=== PATIENT | male | born 1985 | race Caucasian/White ===

== ENCOUNTER 2019-03-19 11:45 | Inpatient (IN) | payer OTHER ==
[2019-03-19 13:46] VITALS: BMI 31.0
--- NOTE | 2019-03-19 16:32 | HP ---
Screened but not Admitted - Documentation of Visit Screened but not Admitted: Yes Left Prior to Completion of Assessment: No Insurance Authorization Denied: No Patient Does Not Meet Criteria for Admission: No Level of Care Recommended at this Time: ER Evaluation/Care Alternative Treatment/Fdc Info Provided: No Additional Information/Explanation: Pt was in [facility] ER yesterday for alcohol detox, given librium and sent here for further management. 33 yo with alcohol use disorder now in alcohol withdrawal: with anxiety, tremulousness, high BP. Pt states he had alcohol withdrawal seizures and presumed DT's about 3 weeks ago. He remembered having hallucinations and then thinks he was sedated for 4 days. [facility] called, spoke to Dr Kincaid and the information above was given.
--- NOTE | 2019-03-19 17:06 | HP ---
CIWA Score Nausea/Vomitin-Mild Nausea/No Vomiting Muscle Tremors: 4-Moderate,w/Arms Extend Anxiety: 2 Agitation: 0-Normal Activity Paroxysmal Sweats: No Perspiration Orientation: 0-Oriented Tacttile Disturbances: 0-None Auditory Disturbances: 0-None Visual Disturbances: 2-Mild Sensitivity Headache: 4-Moderately Severe CIWA-Ar Total Score: 13 - Admission Criteria OASAS Guidelines: Admission for Medically Managed Detox: Requires at least one of the followin. CIWA greater than 12 2. Seizures within the past 24 hours 3. Delirium tremens within the past 24 hours 4. Hallucinations within the past 24 hours 5. Acute intervention needed for co occurring medical disorder 6. Acute intervention needed for co occurring psychiatric disorder 7. Severe withdrawal that cannot be handled at a lower level of care (continued vomiting, continued diarrhea, abnormal vital signs) requiring intravenous medication and/or fluids 8. Admission ROS [facility] - [facility] Chief Complaint: alcohol detox Allergies/Adverse Reactions: Allergies Allergy/AdvReac Type Severity Reaction Status Date / Time codeine Allergy Verified 03/19/19 13:40 History of Present Illness: 33 y/o M with PMH HTN, anxiety, depression, sz, DT's, who presents for alcohol detox. Per pt, his last drink was 1.5 days ago. He had 1L vodka. Drinks this amount daily. Has drank increasing amounts since he was 13 yrs old. Longest duration sobriety 3 weeks - states it occurred when he had broken up with his ex - girlfriend and she moved out of his house. Was recently placed on ativan 2mg tabs BID for 1.5 weeks duration by his Doctor for a recent outpt detox. Had an alcohol withdrawal sz 3-4 weeks ago, and was subsequently placed in a medically induced coma, intubated and in the [facility] ICU. He has blacked out previously. Drinks because it makes him "feel good." Was at [facility] yesterday for detox but was only given few doses of Librium; took two doses this AM and came from there. 1st time at [facility] may want to do rehab after, he isn't sure yet. "it scares him to think of being in a place for too long" PMH: as above PsxH: denies meds: vit B, ?lactulose allergies: codeine- itching, emesis FH: aunt- DM, grandparents - cancer, colon CA SH: lives in a house w friends. 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 smokes 1 ppd since 14 y/o . alcohol use as above. denies other drugs Exam Limitations: No Limitations - Ebola screening Have you traveled outside of the country in the last 21 days: No Have you had contact with anyone from an Ebola affected area: No Have you been sick,other than usual withdrawal symptoms: No Do you have a fever: No - Review of Systems Constitutional: Weakness EENT: reports: Blurred Vision Respiratory: reports: Cough Cardiac: reports: Palpitations GI: reports: Constipated : reports: No Symptoms Reported Musculoskeletal: reports: No Symptoms Reported Integumentary: reports: No Symptoms Reported Neuro: reports: Weakness Endocrine: reports: No Symptoms Reported Hematology: reports: No Symptoms Reported Psychiatric: reports: Orientated x3 Patient History - Patient Medical History Hx Hypertension: Yes Hx Depression: Yes Other Medical History: anxiety - Patient Surgical History Past Surgical History: No - PPD History Previous Implant?: No Implanted On Prior R Admission?: No PPD to be Administered?: Yes - Reproductive History Patient is a Female of Child Bearing Age (11 -55 yrs old): No - Smoking Cessation Smoking history: Current every day smoker Have you smoked in the past 12 months: Yes Aproximately how many cigarettes per day: 20 Hx Chewing Tobacco Use: No Initiated information on smoking cessation: Yes 'Breaking Loose' booklet given: 03/19/19 - Substances abused Alcohol Substance route: Oral Frequency: Daily Amount used: 1 LITER VODKA Age of first use: 14 Date of last use: 03/18/19 Family Disease History - Family Disease History Family Disease History: CA: Grandparent Other Family History: aunt - DM, thyroidectomy. grandparents- cancer, metastic CA Admission Physical Exam BHS - Vital Signs Vital Signs: Vital Signs - 24 hr 03/19/19 03/19/19 13:42 14:19 Temperature 99.1 F 99.1 F Pulse Rate 84 84 Respiratory 18 18 Rate Blood Pressure 160/109 H 160/109 H - Physical General Appearance: Yes: Within Normal Limits HEENTM: Yes: Within Normal Limits, Hearing grossly Normal, Normal Voice Respiratory: Yes: Lungs Clear, Other (+increased expiratory phase) Neck: Yes: Within Normal Limits, Supple Breast: Yes: Breast Exam Deferred Cardiology: Yes: Regular Rhythm, Regular Rate, S1, S2 Abdominal: Yes: Normal Bowel Sounds, Soft Genitourinary: Yes: Within Normal Limits Back: Yes: Normal Inspection Musculoskeletal: Yes: Within Normal Limits Extremities: Yes: Within Normal Limits Neurological: Yes: field technician II-XII NML intact Integumentary: Yes: Dry, Warm - Diagnostic (1) Seizures Current Visit: Yes Status: Chronic (2) Delirium tremens Current Visit: Yes Status: Chronic (3) Hypertension Current Visit: Yes Status: Chronic (4) Anxiety Current Visit: Yes Status: Chronic (5) Depression Current Visit: Yes Status: Chronic (6) Alcohol withdrawal syndrome without complication Current Visit: Yes Status: Acute (7) Nicotine use disorder Current Visit: Yes Status: Chronic Cleared for Admission [facility] - Detox or Rehab [facility] Level of Care: Medically Managed Detox Regimen/Protocol: Librium Breathalyzer - Breathalyzer Breathalyzer: 0 Urine Drug Screen - Test Device Lot number: [id number] Expiration date: 12/10/20 - Control Is test valid?: Yes - Results Urine drug screen results: BAR-Barbiturates, BZO-Benzodiazepines Inpatient Rehab Admission - Rehab Decision to Admit Inpatient rehab admission?: No
[2019-03-19] MEDS ORDERED: chlordiazePOXIDE HCL 25 MG CAPSULE PO PRN (17:25)
[2019-03-19] MEDS ORDERED: chlordiazePOXIDE HCL 25 MG CAPSULE PO ONE (17:25)
[2019-03-19] MEDS ORDERED: cloNIDine HCL 0.1 MG TABLET PO PRN (17:27)
[2019-03-19] MEDS ORDERED: MAGNESIUM HYDROX 2400MG/30ML ORAL SUSPENSION 30 ML CUP PO PRN (17:28)
[2019-03-19] MEDS ORDERED: MAG HYDROX/AL HYDROX/SIMETH 30 ML UNIT-DOSE CUP PO PRN (17:28)
[2019-03-19] MEDS ORDERED: NICOTINE POLACRILEX 2 MG GUM BUC PRN (17:28)
[2019-03-19] MEDS ORDERED: BISMUTH SUBSALICYLATE 524 MG/30 ML UD PO PRN (17:28)
[2019-03-19] MEDS ORDERED: MENTHOL/PHENOL 1 EACH UD MM PRN (17:28)
[2019-03-19] MEDS ORDERED: IBUPROFEN 400 MG TABLET (FP) PO PRN (17:28)
[2019-03-19] MEDS ORDERED: ACETAMINOPHEN 325 MG TABLET (FP) PO PRN ×2 (17:28)
[2019-03-19] MEDS ORDERED: NICOTINE 7 MG/24 HOURS TOPICAL PATCH TD SCH (18:00)
[2019-03-19] MEDS: METHOCARBAMOL 500 MG TABLET PO PRN (18:26)
[2019-03-19] MEDS: chlordiazePOXIDE HCL 25 MG CAPSULE PO SCH ×2 (18:26→22:08)
[2019-03-19] MEDS: hydrOXYzine PAMOATE 25 MG CAPSULE (FP) PO PRN (18:27)
[2019-03-19] MEDS: NICOTINE 7 MG/24 HOURS TOPICAL PATCH TD SCH (19:02)
--- NOTE | 2019-03-19 19:51 | PN ---
Teaching Attending Note Name of Resident: Adelina Mart ATTENDING PHYSICIAN STATEMENT I saw and evaluated the patient. I reviewed the resident's note and discussed the case with the resident. I agree with the resident's findings and plan as documented. SUBJECTIVE: 33 yo with h/o HTN, anxiety and depression here for alcohol detox. Pt was in [facility] ER yesterday for alcohol detox, given librium and sent here for further management. Pt states he had alcohol withdrawal seizures and presumed DT's (He remembered having hallucinations and then thinks he was sedated for 4 days) about 3 weeks ago. OBJECTIVE: Vital Signs - 24 hr 03/19/19 03/19/19 03/19/19 13:42 14:19 18:18 Temperature 99.1 F 99.1 F 98.2 F Pulse Rate 84 84 67 Respiratory 18 18 16 Rate Blood Pressure 160/109 H 160/109 H 144/91 tremulousness, high BP alert and oriented ASSESSMENT AND PLAN: alcohol detox protocol clonidine prn for high BP consider ACEi or Ca channel jody for crop nutrition scientist management.
[2019-03-19] MEDS: MELATONIN 5 MG TABLETS PO PRN (22:09)
[2019-03-19] MEDS: THIAMINE HCL 100 MG TABLET (FP) PO SCH (22:09)
[2019-03-20] MEDS: chlordiazePOXIDE HCL 25 MG CAPSULE PO SCH ×4 (05:19→22:13)
[2019-03-20] MEDS: PRENATAL VITAMINS W/ FOLIC ACID TABLET (FP) PO SCH (10:16)
[2019-03-20] MEDS: hydrOXYzine PAMOATE 25 MG CAPSULE (FP) PO PRN ×2 (10:19→17:27)
[2019-03-20 10:37] LABS: HEMATOCRIT 39.6 % (35.4-49); HEMOGLOBIN 13.6 GM/dL (11.7-16.9); MCH 36.7 pg (25.7-33.7); MCHC 34.3 g/dl (32.0-35.9); MEAN PLT VOLUME 9.4 fl (7.5-11.1); PLATELET COUNT 104 K/MM3 (134-434); RDW 12.6 % (11.9-15.9); WHITE BLOOD COUNT 3.3 K/mm3 (4.0-10.0)
[2019-03-20 10:41] LABS: ALBUMIN 3.5 g/dl (3.4-5.0); BILIRUBIN,TOTAL 1.4 mg/dL (0.2-1); BLOOD UREA NITROGEN 9.2 mg/dL (7-18); CALCIUM 9.6 mg/dL (8.5-10.1); CREATININE 0.6 mg/dL (0.55-1.3); POTASSIUM 3.5 mmol/L (3.5-5.1); TOT PROT 6.4 g/dl (6.4-8.2)
[2019-03-20] MEDS: NICOTINE 7 MG/24 HOURS TOPICAL PATCH TD SCH (11:26)
--- NOTE | 2019-03-20 11:50 | CONSULT ---
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 This is patient's first admission to detox at [facility]. Patient admitted to for alcohol dependence. Substance Abuse History: - Smoking Cessation. Smoking history: Current every day smoker. Have you smoked in the past 12 months: Yes. Aproximately how many cigarettes per day: 20. Hx Chewing Tobacco Use: No Psychiatric History: Patient denies h/o psychiatric hospitlization and suicide attempt. He reports seeing a psychiatrist at the age of 27 while living in [place] and was prescribed buspar and an antidepressant. Mr. Andino denies additional psychiatric treatment. At present he reports stable mood and mild anxiety. Physical/Sexual Abuse/Trauma History: denies. Mental Status Exam - Mental Status Exam Alert and Oriented to: Time, Place, Person Cognitive Function: Good Patient Appearance: Well Groomed Mood: Euthymic Affect: Mood Congruent Patient Behavior: Cooperative Speech Pattern: Appropriate Voice Loudness: Moderately Soft/Quiet Thought Process: Goal Oriented Thought Disorder: Not Present Hallucinations: Denies Suicidal Ideation: Denies Homicidal Ideation: Denies Insight/Judgement: Poor Sleep: Fair Appetite: Fair Muscle strength/Tone: Normal Gait/Station: Normal Psychiatric Findings - Problem List ([place] 1, 2,3) (1) Alcohol-induced anxiety disorder Current Visit: Yes Status: Acute (2) Alcohol-induced mood disorder Current Visit: Yes Status: Acute - Initial Treatment Plan Initial Treatment Plan: Psychoeducation provided. Detoxification in progress. Patient informed of melatonin 5mg HS and vistaril 25mg q6h for anxiety. He reports taking both medications and states they were effective. Observation.
[2019-03-20] MEDS: METHOCARBAMOL 500 MG TABLET PO PRN (14:36)
--- NOTE | 2019-03-20 15:12 | PN ---
S CIWA - CIWA Score Nausea/Vomitin-No Nausea/No Vomiting Muscle Tremors: 3 Anxiety: 3 Agitation: 0-Normal Activity Paroxysmal Sweats: No Perspiration Orientation: 0-Oriented Tacttile Disturbances: 1-Very Mild Itch/Numbness Auditory Disturbances: 0-None Visual Disturbances: 2-Mild Sensitivity Headache: 3-Moderate CIWA-Ar Total Score: 12 BHS Progress Note (SOAP) Subjective: Tremors, Anxious, H/A. Objective: PATIENT A & O X 3, OBSERVED AMBULATING ON UNIT UNASSISTED. IN NO ACUTE DISTRESS. 03/20/19 15:09 Vital Signs Temperature 98.4 F 03/20/19 13:27 Pulse Rate 93 H 03/20/19 13:27 Respiratory Rate 18 03/20/19 13:27 Blood Pressure 136/90 03/20/19 13:27 O2 Sat by Pulse Oximetry (%) Laboratory Tests 03/20/19 03/20/19 03/20/19 07:00 07:00 07:00 WBC 3.3 L RBC 3.70 L Hgb 13.6 Hct 39.6 MCV 107.0 H MCH 36.7 H MCHC 34.3 RDW 12.6 Plt Count 104 L MPV 9.4 Sodium 140 Potassium 3.5 Chloride 104 Carbon Dioxide 32 Anion Gap 5 L BUN 9.2 Creatinine 0.6 Est GFR (CKD-EPI)AfAm 153.11 Est GFR (CKD-EPI)NonAf 132.10 Random Glucose 102 Calcium 9.6 Total Bilirubin 1.4 H AST 60 H ALT 74 H Alkaline Phosphatase 69 Total Protein 6.4 Albumin 3.5 RPR Titer Nonreactive LABS NOTED. RESULTS OF DETOX ADMISSION QFT / TB TEST PENDING. 03/20/19 15:10 Assessment: 03/20/19 15:10 WITHDRAWAL SYMPTOMS. LEUKOPENIA. THROMBOCYTOPENIA. ELEVATED AST LEVEL. ELEVATED ALT LEVEL. HYPERBILIRUBINEMIA. 03/20/19 15:12 Plan: CONTINUE DETOX. INCREASE DAILY PO WATER INTAKE.
[2019-03-20] MEDS: MELATONIN 5 MG TABLETS PO PRN (22:13)
[2019-03-20] MEDS: THIAMINE HCL 100 MG TABLET (FP) PO SCH (22:13)
[2019-03-21] MEDS: chlordiazePOXIDE HCL 25 MG CAPSULE PO SCH ×4 (06:16→22:23)
--- NOTE | 2019-03-21 09:08 | PN ---
S CIWA - CIWA Score Nausea/Vomitin-No Nausea/No Vomiting Muscle Tremors: 1-None Visible, but [place] Anxiety: 0-No Anxiety, at Ease Agitation: 1-Slight > Activity Paroxysmal Sweats: No Perspiration Orientation: 0-Oriented Tacttile Disturbances: 0-None Auditory Disturbances: 0-None Visual Disturbances: 0-None Headache: 1-Very Mild CIWA-Ar Total Score: 3 BHS Progress Note (SOAP) Subjective: Patient seen while in bed without distress. No relevant complaints. Objective: 03/21/19 09:06 Vitals: BP: 109/56 P: 59/min R: 17/min T: 97.7F Laboratory 03/20/19 03/20/19 03/20/19 07:00 07:00 07:00 WBC 3.3 K/mm3 L K/mm3 (4.0-10.0) RBC 3.70 M/mm3 L M/mm3 (4.00-5.60) Hgb 13.6 GM/dL GM/dL (11.7-16.9) Hct 39.6 % % (35.4-49) MCV 107.0 fl H fl (80-96) MCH 36.7 pg H pg (25.7-33.7) MCHC 34.3 g/dl g/dl (32.0-35.9) RDW 12.6 % % (11.9-15.9) Plt Count 104 K/MM3 L K/MM3 (134-434) MPV 9.4 fl fl (7.5-11.1) Sodium 140 mmol/L mmol/L (136-145) Potassium 3.5 mmol/L mmol/L (3.5-5.1) Chloride 104 mmol/L mmol/L (98-107) Carbon Dioxide 32 mmol/L mmol/L (21-32) Anion Gap 5 MMOL/L L MMOL/L (8-16) BUN 9.2 mg/dL mg/dL (7-18) Creatinine 0.6 mg/dL mg/dL (0.55-1.3) Est GFR (CKD-EPI)AfAm 153.11 Est GFR (CKD-EPI)NonAf 132.10 Random Glucose 102 mg/dL mg/dL (74-106) Calcium 9.6 mg/dL mg/dL (8.5-10.1) Total Bilirubin 1.4 mg/dL H mg/dL (0.2-1) AST 60 U/L H U/L (15-37) ALT 74 U/L H U/L (13-61) Alkaline Phosphatase 69 U/L U/L (45-117) Total Protein 6.4 g/dl g/dl (6.4-8.2) Albumin 3.5 g/dl g/dl (3.4-5.0) RPR Titer Nonreactive (NONREACTIVE) Assessment: 03/21/19 09:07 Patient in mild alcohol withdrawals. 03/21/19 09:09 Mild AST and ALT noted Thrombocytopenia noted Macrocytic anemia indices. All these are consistent with alcohol use disorder. Plan: Plan: Continue Detox as he is doing well on present protocol. Dr. Dempsey
[2019-03-21] MEDS: NICOTINE 7 MG/24 HOURS TOPICAL PATCH TD SCH (10:16)
[2019-03-21] MEDS: PRENATAL VITAMINS W/ FOLIC ACID TABLET (FP) PO SCH (10:16)
[2019-03-21] MEDS: THIAMINE HCL 100 MG TABLET (FP) PO SCH (22:23)
[2019-03-21] MEDS: MELATONIN 5 MG TABLETS PO PRN (22:23)
[2019-03-22] MEDS ORDERED: chlordiazePOXIDE HCL 10 MG CAPSULE PO PRN
[2019-03-22] MEDS: chlordiazePOXIDE HCL 10 MG CAPSULE PO SCH ×4 (05:42→22:31)
[2019-03-22] MEDS: PRENATAL VITAMINS W/ FOLIC ACID TABLET (FP) PO SCH (10:30)
[2019-03-22] MEDS: NICOTINE 7 MG/24 HOURS TOPICAL PATCH TD SCH (10:31)
--- NOTE | 2019-03-22 11:37 | PN ---
S CIWA - CIWA Score Nausea/Vomitin-No Nausea/No Vomiting Muscle Tremors: 2 Anxiety: 1-Mildly Anxious Agitation: 1-Slight > Activity Paroxysmal Sweats: No Perspiration Orientation: 0-Oriented Tacttile Disturbances: 0-None Auditory Disturbances: 0-None Visual Disturbances: 0-None Headache: 0-None Present CIWA-Ar Total Score: 4 BHS Progress Note (SOAP) Subjective: bored tired Objective: 03/22/19 11:37 Vital Signs Temperature 95.9 F L 03/22/19 09:19 Pulse Rate 73 03/22/19 09:19 Respiratory Rate 18 03/22/19 09:19 Blood Pressure 124/78 03/22/19 09:19 O2 Sat by Pulse Oximetry (%) Laboratory Tests 03/20/19 03/20/19 03/20/19 07:00 07:00 07:00 WBC 3.3 L RBC 3.70 L Hgb 13.6 Hct 39.6 MCV 107.0 H MCH 36.7 H MCHC 34.3 RDW 12.6 Plt Count 104 L MPV 9.4 Sodium 140 Potassium 3.5 Chloride 104 Carbon Dioxide 32 Anion Gap 5 L BUN 9.2 Creatinine 0.6 Est GFR (CKD-EPI)AfAm 153.11 Est GFR (CKD-EPI)NonAf 132.10 Random Glucose 102 Calcium 9.6 Total Bilirubin 1.4 H AST 60 H ALT 74 H Alkaline Phosphatase 69 Total Protein 6.4 Albumin 3.5 RPR Titer Nonreactive aaox3 ambulating no acute distress Assessment: 03/22/19 11:37 mild withdrawal sx Plan: continue detox increase fluids
[2019-03-22] MEDS: THIAMINE HCL 100 MG TABLET (FP) PO SCH (22:31)
[2019-03-22] MEDS: METHOCARBAMOL 500 MG TABLET PO PRN (22:32)
[2019-03-22] MEDS: MELATONIN 5 MG TABLETS PO PRN (22:32)
[2019-03-23] MEDS ORDERED: chlordiazePOXIDE HCL 10 MG CAPSULE PO SCH (05:00)
[2019-03-23 06:26] VITALS: BP 99/61; PULSE 53; TEMP 97.2
--- NOTE | 2019-03-23 12:56 | DS ---
[facility] Detox Discharge Summary Admission Date: 03/19/19 Discharge Date: 03/23/19 - History Present History: Alcohol Dependence Additional Comments: Pt completed detox successfully and discharged safely. Pt instructed to follow up with his PCP within 1-2 weeks. Pertinent Past History: HTN Anxiety Depression Seizure disorder Nicotine dependence - Physical Exam Results Vital Signs: Vital Signs Temperature 97.2 F L 03/23/19 06:00 Pulse Rate 53 L 03/23/19 06:00 Respiratory Rate 18 03/23/19 06:00 Blood Pressure 99/61 03/23/19 06:00 O2 Sat by Pulse Oximetry (%) Pertinent Admission Physical Exam Findings: Withdrawal sxs Laboratory Tests 03/20/19 03/20/19 03/20/19 07:00 07:00 07:00 WBC 3.3 L RBC 3.70 L Hgb 13.6 Hct 39.6 MCV 107.0 H MCH 36.7 H MCHC 34.3 RDW 12.6 Plt Count 104 L MPV 9.4 Sodium 140 Potassium 3.5 Chloride 104 Carbon Dioxide 32 Anion Gap 5 L BUN 9.2 Creatinine 0.6 Est GFR (CKD-EPI)AfAm 153.11 Est GFR (CKD-EPI)NonAf 132.10 Random Glucose 102 Calcium 9.6 Total Bilirubin 1.4 H AST 60 H ALT 74 H Alkaline Phosphatase 69 Total Protein 6.4 Albumin 3.5 RPR Titer TB (QFT) Incubation TB Test (QFT) Nil 0.04 TB Test (QFT) Mitogen >10.00 TB Test (QFT) Antigen 0.06 TB Test (QFT) Negative TB Positive Criteria 03/20/19 07:00 WBC RBC Hgb Hct MCV MCH MCHC RDW Plt Count MPV Sodium Potassium Chloride Carbon Dioxide Anion Gap BUN Creatinine Est GFR (CKD-EPI)AfAm Est GFR (CKD-EPI)NonAf Random Glucose Calcium Total Bilirubin AST ALT Alkaline Phosphatase Total Protein Albumin RPR Titer Nonreactive TB (QFT) Incubation TB Test (QFT) Nil TB Test (QFT) Mitogen TB Test (QFT) Antigen TB Test (QFT) TB Positive Criteria Labs reviewed: elevated LFTs most likely due to alcoholism - Treatment Hospital Course: Detox Protocol Followed, Detoxed Safely, Responded well, Discharged Condition Good - Medication Discharge Medications: Ambulatory Orders Folic Acid - 1 mg PO DAILY 03/19/19 Thiamine Mononitrate [Vitamin B-1] 100 mg PO DAILY 03/19/19 - Diagnosis (1) Elevated LFTs Status: Acute (2) Alcohol withdrawal syndrome without complication Status: Acute (3) Anxiety Status: Chronic (4) Depression Status: Chronic (5) Hypertension Status: Chronic (6) Nicotine use disorder Status: Chronic (7) Seizures Status: Chronic - AMA Did Patient Leave Against Medical Advice: No (Follow up with your PCP within 1- 2 weeks post discharge)
[2019-03-24] MEDS ORDERED: chlordiazePOXIDE HCL 10 MG CAPSULE PO ONE (05:00)
== END 2019-03-23 09:45 | disposition home or self-care (01) | DRG 775 ==
LOC: YASAS 11:45 → Y6N 17:13
PROVIDERS: ADMIT Surgery; ATTEND Surgery
PROC: HZ2ZZZZ Detoxification Services for Substance Abuse Treatment (ICD-10-PCS; principal; 2019-03-19)
DX: F10.230 Alcohol dependence with withdrawal, uncomplicated (principal); F10.24 Alcohol dependence with alcohol-induced mood disorder; F10.231 Alcohol dependence with withdrawal delirium; F10.280 Alcohol dependence with alcohol-induced anxiety disorder; F17.210 Nicotine dependence, cigarettes, uncomplicated; F41.9 Anxiety disorder, unspecified; F32.9 Major depressive disorder, single episode, unspecified; I10 Essential (primary) hypertension; R94.5 Abnormal results of liver function studies; D69.6 Thrombocytopenia, unspecified; D53.9 Nutritional anemia, unspecified; D72.819 Decreased white blood cell count, unspecified; R74.0 Nonspecific elevation of levels of transaminase and lactic acid dehydrogenase [LDH]; E80.6 Other disorders of bilirubin metabolism
CPT/HCPCS: 36415; 80053; 85027; 86480; 86593; J0735